=== PATIENT | female | born 1955 | race Caucasian/White ===

== ENCOUNTER 2021-07-23 12:12 | Emergency (ER) | payer OTHER ==
[~2021-07-23] VITALS: Ht 160 cm; Wt 55.0 kg
[2021-07-23 13:51] LABS: ANION GAP 10 mmol/L (8-16); CALCIUM, TOTAL 9.9 mg/dL (8.8-10.5); CARBON DIOXIDE 30 mmol/L (22-29); CHLORIDE 106 mmol/L (98-107); CREATININE 0.67 mg/dL (0.60-1.30); GLOMERULAR FILTR. RATE CALC > 60 mL/min (>60); GLUCOSE,RANDOM 121 mg/dL (70-110); POTASSIUM 3.1 mmol/L (3.5-5.1); SODIUM SERUM 146 mmol/L (136-145); UREA NITROGEN, BLOOD 6 mg/dL (7-18)
[2021-07-23 14:06] LABS: B-TYPE NATRIURETIC PEPTIDE 18 pg/mL (0-100)
[2021-07-23] MEDS ORDERED: POTASSIUM CHLORIDE 20 MEQ ER TABLET PO ONE (14:15)
[2021-07-23 14:17] LABS: ALANINE AMINOTRANSFERASE 104 U/L (12-78); ALBUMIN 3.9 g/dL (3.4-5.0); ALKALINE PHOSPHATASE 138 U/L (46-116); ASPARTATE AMINOTRANSFERASE 176 U/L (15-37); BILIRUBIN,TOTAL 0.5 mg/dL (0.1-1.0); CREATINE KINASE, TOTAL ONLY 239 U/L (26-192); PHOSPHORUS 5.1 mg/dL (2.5-4.9); TOTAL PROTEIN, SERUM 7.1 g/dL (6.4-8.2)
[2021-07-23] MEDS ORDERED: MAGNESIUM SULFATE 2 GM/WATER 50 ML IV ONE (14:30)
[2021-07-23 14:35] LABS: BASOPHILS % (AUTO) 1.1 % (0.0-2.0); EOSINOPHILS % (AUTO) 1.5 % (1.0-6.0); HEMOGLOBIN 14.1 g/dL (12.0-16.0); LYMPHOCYTES # (AUTO) 1.4 K/uL (1.0-4.8); LYMPHOCYTES % (AUTO) 32.3 % (22.0-44.0); MEAN CORPUSCULAR VOLUME 110 fL (80-100); MONOCYTES # (AUTO) 0.5 K/uL (0.1-1.0); MONOCYTES % (AUTO) 11.9 % (2.0-9.0); NEUTROPHILS # (AUTO) 2.4 K/uL (1.8-7.7); NEUTROPHILS % (AUTO) 53.2 % (40.0-70.0); PLATELET COUNT (AUTO) 89 K/uL (150-450); RED BLOOD CELL COUNT(AUTO) 3.44 MIL/uL (4.00-5.20); RED CELL DISTRIBUTION WIDTH 13.8 % (11.5-14.5)
[2021-07-23 14:43] LABS: MEAN CORPUSCULAR HEMOGLOBIN 40.9 pg (26.0-34.0)
[2021-07-23 14:54] LABS: APPEARANCE,URINE CLOUDY (CLEAR); BILIRUBIN,URINE NEGATIVE (NEGATIVE); GLUCOSE, URINE (UA) NEGATIVE (NEGATIVE); KETONES,URINE NEGATIVE (NEGATIVE); LEUKOCYTE ESTERASE ,URINE SMALL (NEGATIVE); NITRATE,URINE POSITIVE (NEGATIVE); OCCULT BLOOD,URINE NEGATIVE (NEGATIVE); PH,URINE 5.5 (5.0-8.0); PROTEIN,URINE NEGATIVE (NEGATIVE); UROBILINOGEN,URINE 0.2 mg/dL (<=1.0)
[2021-07-23 15:01] LABS: AMPHET/METH SCREEN,URINE NEGATIVE (NEGATIVE); BACTERIA,URINE Moderate /HPF (None Seen); BARBITURATE SCREEN, URINE NEGATIVE (NEGATIVE); BENZODIAZEPINES SCREEN,URINE NEGATIVE (NEGATIVE); CANNABINOID SCREEN,URINE NEGATIVE (NEGATIVE); COCAINE SCREEN,URINE NEGATIVE (NEGATIVE); METHADONE SCREEN, URINE NEGATIVE (NEGATIVE); OPIATE SCREEN,URINE NEGATIVE (NEGATIVE); PHENCYCLIDINE SCREEN,URINE NEGATIVE (NEGATIVE); RBC,URINE None Seen /HPF (0-2); SQUAMOUS EPITHELIAL CELL,UR Few /LPF (None Seen)
[2021-07-23] MEDS ORDERED: CEPHALEXIN MONOHYDRATE 500 MG CAPSULE PO ONE (15:15)
[2021-07-23 18:26] VITALS: BP 155/82
== END 2021-07-23 19:23 | disposition home or self-care (01) ==
LOC: EMS 12:28
DX: F10.129 Alcohol abuse with intoxication, unspecified (principal); N39.0 Urinary tract infection, site not specified; E83.42 Hypomagnesemia; E87.6 Hypokalemia; I11.9 Hypertensive heart disease without heart failure
CPT/HCPCS: 36415; 70450; 71045; 72125; 80053; 80307; 81001; 82550; 83735; 83880; 84100; 84484; 85025; 87086; 93005; 96365; 96366; 99285; G0480; J3475

== ENCOUNTER 2021-10-20 11:31 | Inpatient (IN) | payer OTHER ==
[~2021-10-20] VITALS: Ht 157.5 cm; Wt 62.1 kg
[2021-10-20] MEDS ORDERED: SODIUM CHLORIDE 0.9% 1,000 ML IV ONE (11:45)
[2021-10-20] MEDS ORDERED: DILTIAZEM HCL 5 MG/ML 5 ML VIAL IVP ONE ×2 (11:45→12:00)
[2021-10-20 11:54] LABS: ANION GAP 19 mmol/L (8-16); CALCIUM, TOTAL 8.3 mg/dL (8.8-10.5); CARBON DIOXIDE 22 mmol/L (22-29); CHLORIDE 96 mmol/L (98-107); CREATININE 0.67 mg/dL (0.60-1.30); GLOMERULAR FILTR. RATE CALC > 60 mL/min (>60); GLUCOSE,RANDOM 98 mg/dL (70-110); POTASSIUM 3.3 mmol/L (3.5-5.1); SODIUM SERUM 137 mmol/L (136-145); UREA NITROGEN, BLOOD 15 mg/dL (7-18)
[2021-10-20 12:09] LABS: BASOPHILS % (AUTO) 0.8 % (0.0-2.0); EOSINOPHILS % (AUTO) 0.7 % (1.0-6.0); HEMATOCRIT 38.5 % (36-46); HEMOGLOBIN 13.5 g/dL (12.0-16.0); LYMPHOCYTES # (AUTO) 1.7 K/uL (1.0-4.8); LYMPHOCYTES % (AUTO) 22.7 % (22.0-44.0); MEAN CORPUSCULAR HEMOGLOBIN 34.5 pg (26.0-34.0); MEAN CORPUSCULAR HGB CONC 35.1 G/dL (31.0-37.0); MEAN CORPUSCULAR VOLUME 98 fL (80-100); MONOCYTES # (AUTO) 0.6 K/uL (0.1-1.0); NEUTROPHILS # (AUTO) 5.1 K/uL (1.8-7.7); NEUTROPHILS % (AUTO) 67.8 % (40.0-70.0); PLATELET COUNT (AUTO) 105 K/uL (150-450); RED BLOOD CELL COUNT(AUTO) 3.92 MIL/uL (4.00-5.20); RED CELL DISTRIBUTION WIDTH 14.4 % (11.5-14.5)
[2021-10-20 12:11] LABS: ALANINE AMINOTRANSFERASE 161 U/L (12-78); ALKALINE PHOSPHATASE 104 U/L (46-116); ASPARTATE AMINOTRANSFERASE 224 U/L (15-37); B-TYPE NATRIURETIC PEPTIDE 60 pg/mL (0-100); BILIRUBIN,TOTAL 1.2 mg/dL (0.1-1.0); CREATINE KINASE, TOTAL ONLY 220 U/L (26-192); PHOSPHORUS 3.3 mg/dL (2.5-4.9)
[2021-10-20 12:12] LABS: ALBUMIN 3.9 g/dL (3.4-5.0); TOTAL PROTEIN, SERUM 7.2 g/dL (6.4-8.2)
[2021-10-20] MEDS ORDERED: DILTIAZEM HCL 60 MG SR CAPSULE PO ONE (12:15)
[2021-10-20] MEDS ORDERED: LORazepam 2 MG/ML VIAL IVP ONE (12:30)
[2021-10-20] MEDS ORDERED: 0.9% SODIUM CHLORIDE 10 ML SYRINGE IVP PRN (13:15)
[2021-10-20] MEDS ORDERED: ONDANSETRON HCL 4 MG/2 ML VIAL IVP PRN (13:15)
[2021-10-20] MEDS ORDERED: ACETAMINOPHEN 325 MG TABLET PO PRN ×2 (13:15→14:30)
[2021-10-20 13:27] LABS: COVID AG,FIA SOURCE NASOPHARYNGEAL
[2021-10-20] MEDS ORDERED: LORazepam 2 MG/ML VIAL IVP PRN (14:30)
[2021-10-20] MEDS ORDERED: POTASSIUM CHL 10 MEQ/WATER 50 ML IV PRN (14:30)
[2021-10-20] MEDS: POTASSIUM CHLORIDE 20 MEQ ER TABLET PO PRN ×2 (15:31→23:04)
[2021-10-20] MEDS: HEPARIN SODIUM,PORCINE 5,000 UNITS/ML VIAL SQ SCH (15:32)
[2021-10-20 15:57] VITALS: BP 128/66
[2021-10-20 18:31] VITALS: BP 138/78
[2021-10-20 19:40] VITALS: BP 129/72
[2021-10-20] MEDS: DILTIAZEM HCL CD 120 MG ER CAPSULE PO SCH (20:36)
[2021-10-20] MEDS: DOCUSATE SODIUM 100 MG CAPSULE PO SCH (20:36)
[2021-10-20] MEDS: FAMOTIDINE 20 MG TABLET PO SCH (20:36)
[2021-10-20] MEDS ORDERED: MULT-660 PO (20:52)
[2021-10-20] MEDS ORDERED: DILT240C51 PO (20:52)
[2021-10-20] MEDS ORDERED: BUPR-93 PO (20:59)
[2021-10-20] MEDS ORDERED: ASPI81TA39 PO (20:59)
[2021-10-20] MEDS ORDERED: NABU-141 PO (20:59)
[2021-10-20] MEDS ORDERED: CINN1CAP PO (20:59)
[2021-10-20] MEDS ORDERED: ALEN35TA41 PO (21:08)
[2021-10-20] MEDS ORDERED: UMEC62.5 IH (21:08)
[2021-10-20] MEDS ORDERED: CHOL500013 PO (21:08)
[2021-10-20] MEDS ORDERED: [UNRECOGNIZED DRUG - CODE] PO (21:08)
[2021-10-20] MEDS ORDERED: CALC1CAP4 PO (21:08)
[2021-10-21 00:09] VITALS: BP 122/67
[2021-10-21] MEDS: HEPARIN SODIUM,PORCINE 5,000 UNITS/ML VIAL SQ SCH ×3 (02:05→15:30)
[2021-10-21 05:11] VITALS: BP 111/75
[2021-10-21 06:40] LABS: ALANINE AMINOTRANSFERASE 121 U/L (12-78); ALBUMIN 3.5 g/dL (3.4-5.0); ALKALINE PHOSPHATASE 97 U/L (46-116); ANION GAP 7 mmol/L (8-16); ASPARTATE AMINOTRANSFERASE 128 U/L (15-37); BILIRUBIN,TOTAL 1.2 mg/dL (0.1-1.0); CALCIUM, TOTAL 8.3 mg/dL (8.8-10.5); CARBON DIOXIDE 28 mmol/L (22-29); CHLORIDE 98 mmol/L (98-107); CREATININE 0.59 mg/dL (0.60-1.30); GLUCOSE,RANDOM 97 mg/dL (70-110); POTASSIUM 3.4 mmol/L (3.5-5.1); SODIUM SERUM 133 mmol/L (136-145); THYROID STIMULATING HORMONE 2.26 uIU/mL (0.36-3.74); TOTAL PROTEIN, SERUM 6.3 g/dL (6.4-8.2); UREA NITROGEN, BLOOD 7 mg/dL (7-18)
[2021-10-21 07:01] LABS: GLOMERULAR FILTR. RATE CALC > 60 mL/min (>60)
[2021-10-21 07:13] VITALS: BP 127/76
[2021-10-21 08:04] LABS: BASOPHILS % (AUTO) 1.2 % (0.0-2.0); EOSINOPHILS % (AUTO) 2.6 % (1.0-6.0); HEMATOCRIT 33.5 % (36-46); HEMOGLOBIN 12.8 g/dL (12.0-16.0); LYMPHOCYTES # (AUTO) 1.5 K/uL (1.0-4.8); LYMPHOCYTES % (AUTO) 39.3 % (22.0-44.0); MEAN CORPUSCULAR HEMOGLOBIN 40.2 pg (26.0-34.0); MEAN CORPUSCULAR VOLUME 106 fL (80-100); MONOCYTES # (AUTO) 0.4 K/uL (0.1-1.0); MONOCYTES % (AUTO) 9.8 % (2.0-9.0); NEUTROPHILS # (AUTO) 1.8 K/uL (1.8-7.7); NEUTROPHILS % (AUTO) 47.1 % (40.0-70.0); PLATELET COUNT (AUTO) 83 K/uL (150-450); RED BLOOD CELL COUNT(AUTO) 3.18 MIL/uL (4.00-5.20); RED CELL DISTRIBUTION WIDTH 14.3 % (11.5-14.5)
[2021-10-21] MEDS: DOCUSATE SODIUM 100 MG CAPSULE PO SCH ×3 (08:45→20:04)
[2021-10-21] MEDS: MULTIVITAMINS WITH MINERALS, THERAPEUTIC TABLET PO SCH (08:46)
[2021-10-21] MEDS: POTASSIUM CHLORIDE 20 MEQ ER TABLET PO PRN (08:46)
[2021-10-21] MEDS: FAMOTIDINE 20 MG TABLET PO SCH ×2 (08:46→20:04)
[2021-10-21] MEDS: DILTIAZEM HCL CD 120 MG ER CAPSULE PO SCH ×2 (09:21→20:03)
[2021-10-21 11:21] VITALS: BP 122/74
[2021-10-21 15:16] VITALS: BP 130/72
[2021-10-21 20:23] VITALS: BP 115/74
[2021-10-22] MEDS: HEPARIN SODIUM,PORCINE 5,000 UNITS/ML VIAL SQ SCH ×2 (00:16→08:14)
[2021-10-22 00:32] VITALS: BP 124/78
[2021-10-22 05:37] VITALS: BP 120/77
[2021-10-22] MEDS: FAMOTIDINE 20 MG TABLET PO SCH (08:14)
[2021-10-22] MEDS: MULTIVITAMINS WITH MINERALS, THERAPEUTIC TABLET PO SCH (08:14)
[2021-10-22] MEDS: DILTIAZEM HCL CD 120 MG ER CAPSULE PO SCH (08:15)
[2021-10-22] MEDS: DOCUSATE SODIUM 100 MG CAPSULE PO SCH (08:16)
[2021-10-22 08:39] VITALS: BP 125/74
[2021-10-22] MEDS ORDERED: ASPIRIN 81 MG DR TABLET PO SCH (09:00)
[2021-10-22] MEDS ORDERED: DILTIAZEM HCL CD 180 MG ER CAPSULE PO SCH (21:00)
== END 2021-10-22 14:15 | disposition home or self-care (01) | DRG 309 ==
LOC: EMS 11:31 → 5S 13:54
PROVIDERS: ADMIT Internal Medicine; ATTEND Internal Medicine
DX: I48.91 Unspecified atrial fibrillation (principal); E44.0 Moderate protein-calorie malnutrition; F10.139 Alcohol abuse with withdrawal, unspecified; I48.92 Unspecified atrial flutter; K70.9 Alcoholic liver disease, unspecified; D69.6 Thrombocytopenia, unspecified; E87.6 Hypokalemia; Z20.822 Contact with and (suspected) exposure to COVID-19; F17.210 Nicotine dependence, cigarettes, uncomplicated; Y90.9 Presence of alcohol in blood, level not specified; I11.9 Hypertensive heart disease without heart failure; Z68.25 Body mass index [BMI] 25.0-25.9, adult
CPT/HCPCS: 71045; 80053; 82550; 83735; 83880; 84100; 84132; 84443; 84484; 85025; 93005; 93306; 99291; G0480; J1644; J2060; J3490; 36415-L1; 36415-TC